=== PATIENT | female | born 1980 | race Caucasian/White ===

== ENCOUNTER 2017-04-16 14:30 | Emergency (ER) | payer SELFPAY ==
[2017-04-16 15:00] VITALS: BMI 24.2
--- NOTE | 2017-04-16 16:10 | PDOC ---
History of Present Illness - General Chief Complaint: Vaginal Bleeding Stated Complaint: Vaginal Bleeding/POSSIBLE Time Seen by Provider: 04/16/17 15:54 History Source: Patient - History of Present Illness Timing/Duration: reports: other Abdominal Pain Onset Location: reports: suprapubic Pain Radiation: reports: no radiation Past History - Past Medical History Allergies/Adverse Reactions: Allergies Allergy/AdvReac Type Severity Reaction Status Date / Time No Known Allergies Allergy Verified 04/16/17 14:57 Home Medications: Ambulatory Orders Nitrofurantoin Monohyd/M-Cryst [Macrobid -] 100 mg PO BID #14 capsule 04/16/17 - Psycho/Social/Smoking Cessation Hx Suicidal Ideation: No Smoking History: Never smoked Review of Systems - Review of Systems Constitutional: No: Chills, Fever ABD/GI: Yes: Abdominal cramping. No: Nausea, Vomiting : No: Dysuria *Physical Exam - Vital Signs Last Vital Signs Temp Pulse Resp BP Pulse Ox 98.3 F 100 H 18 130/66 100 04/16/17 14:57 04/16/17 14:57 04/16/17 14:57 04/16/17 14:57 04/16/17 14:57 - Physical Exam General Appearance: Yes: Appropriately Dressed. No: Apparent Distress HEENT: positive: Normal Voice Neck: positive: Supple Respiratory/Chest: negative: Respiratory Distress Female Pelvic Exam: positive: normal external exam, normal adnexa, other (trace vag bleed from os, os closed). negative: CMT, discharge, lesions Gastrointestinal/Abdominal: positive: Tender (minimal ttp to mid suprapubic), Soft. negative: Distended, Guarding, Rebound Musculoskeletal: negative: CVA Tenderness Integumentary: positive: Dry, Warm Neurologic: positive: Fully Oriented, Alert, Normal Mood/Affect ED Treatment Course - LABORATORY CBC & Chemistry Diagram: 04/16/17 16:15 04/16/17 16:15 Medical Decision Making - Medical Decision Making 04/16/17 16:05 36-year-old female, G0, presenting with vaginal bleeding. Patient states her last normal period was February 22, 2017, did not have a period last month and tested positive for at home. For unclear reasons, has not follow-up with OB. Here today because of vaginal spotting that started 5 days ago and states she but again today and had some lower abdominal cramping. No dysuria, nausea, vomiting, dizziness or weakness. See exam 1st trimester bleed Ectopic vs spon AB vs vag bleed in nl preg Stable w/ minimal mid suprapubic ttp w/ trace blood in vault and closed os -T&S -US -Beta -US 04/16/17 18:43 04/16/17 18:57 04/16/17 18:58 Beta >130K w/ IUP @ 7 weeks on US w/ FHR. Ua w/ 2+ LE, will tx. Ucx pending. Pt signed out to [facility] pending T&S. Pt will need OB f/u for re-evaluation this week 04/16/17 18:59 04/16/17 19:01 04/16/17 19:06 Pt states she is B+ blood type and does not wish to wait for T&S. Pt discharged to f/u with her Ob this week *DC/Admit/Observation/Transfer Diagnosis at time of Disposition: Threatened - Discharge Dispostion Disposition: HOME Condition at time of disposition: Good - Prescriptions Prescriptions: Nitrofurantoin Monohyd/M-Cryst [Macrobid -] 100 mg PO BID #14 capsule - Patient Instructions Printed Discharge Instructions: Threatened Additional Instructions: Mann HCG beta fue superior a 130.000. Mann ultrasonido muestra un embarazo intrauterino a aproximadamente 7 semanas 5 pelaez con actividad cardaca . Tendr que hacer un seguimiento con mann gineclogo esta semana para repetir la evaluacin. Usted delmer glbulos blancos en la orina, lo que podra significar hill infecci n y se inici con antibiticos para prevenir complicaciones con mann embarazo Print Language: ROMANIAN
[2017-04-16 16:47] LABS: BASOPHIL 0.3 % (0-2.0); EOSINOPHIL 0.3 % (0-4.5); MCH 25.6 pg (25.7-33.7); MCHC 32.7 g/dl (32.0-36.0); MEAN CELL VOLUME 78.2 fl (80-96); MEAN PLT VOLUME 9.2 fl (7.5-11.1); NEUTROPHILS 76.8 % (42.8-82.8); PLATELET COUNT 250 K/MM3 (134-434); RDW 17.8 % (11.6-15.6); WHITE BLOOD COUNT 11.6 K/mm3 (4.0-10.0)
[2017-04-16 17:19] LABS: ALBUMIN 3.8 g/dl (3.4-5.0); ANION GAP 10 (8-16); BILIRUBIN,TOTAL 0.4 mg/dL (0.2-1.0); CO2 26 mmol/L (21-32); CREATININE 0.6 mg/dL (0.55-1.02); GLUCOSE,RANDOM 131 mg/dL (74-106); SGOT/AST 14 U/L (15-37); SGPT/ALT 33 U/L (12-78); TOT PROT 7.2 g/dl (6.4-8.2)
[2017-04-16 17:34] LABS: ALK PHOS 46 U/L (45-117)
[2017-04-16 17:56] LABS: URINE APPEARANCE CLOUDY; URINE BILIRUBIN NEGATIVE (NEGATIVE); URINE BLOOD 1+ (NEGATIVE); URINE COLOR YELLOW; URINE GLUCOSE (UA) NEGATIVE (NEGATIVE); URINE KETONE NEGATIVE (NEGATIVE); URINE NITRITE NEGATIVE (NEGATIVE); URINE PROTEIN NEGATIVE (NEGATIVE); URINE UROBILINOGEN NEGATIVE mg/dL (0.2-1.0)
[2017-04-16 18:34] LABS: URINE LEUK ESTERASE 2+ (NEGATIVE)
--- NOTE | 2017-04-16 18:59 | PDOC ---
*Physical Exam - Vital Signs Last Vital Signs Temp Pulse Resp BP Pulse Ox 98.3 F 100 H 18 130/66 100 04/16/17 14:57 04/16/17 14:57 04/16/17 14:57 04/16/17 14:57 04/16/17 14:57 ED Treatment Course - LABORATORY CBC & Chemistry Diagram: 04/16/17 16:15 04/16/17 16:15 - ADDITIONAL ORDERS Additional order review: Laboratory Results 04/16/17 04/16/17 17:45 16:15 Sodium 138 Potassium 3.5 Chloride 102 Carbon Dioxide 26 Anion Gap 10 BUN 8 Creatinine 0.6 Creat Clearance w eGFR > 60 Random Glucose 131 H Calcium 9.0 Total Bilirubin 0.4 AST 14 L ALT 33 Alkaline Phosphatase 46 Total Protein 7.2 Albumin 3.8 Beta HCG, Quant 563447.3 Urine Color Yellow Urine Appearance Cloudy Urine pH 7.0 Urine Protein Negative Urine Glucose (UA) Negative Urine Ketones Negative Urine Blood 1+ H Urine Nitrite Negative Urine Bilirubin Negative Urine Urobilinogen Negative Ur Leukocyte Esterase 2+ H Urine HCG, Qual Positive 04/16/17 16:15 RBC 4.41 MCV 78.2 L MCHC 32.7 RDW 17.8 H MPV 9.2 Neutrophils % 76.8 Lymphocytes % 17.4 Monocytes % 5.2 Eosinophils % 0.3 Basophils % 0.3 Medical Decision Making - Medical Decision Making 04/16/17 18:58 Pt seen by Midlevel Provider under my direct supervision Ancillary studies reviewed I agree with plan as outlined by Midlevel Provider 04/16/17 18:59 Laboratory Tests 04/16/17 04/16/17 16:15 17:45 Beta HCG, Quant 730298.3 Urine Blood 1+ H Urine Nitrite Negative Ur Leukocyte Esterase 2+ H Pending transvaginal US *DC/Admit/Observation/Transfer Diagnosis at time of Disposition: Threatened - Discharge Dispostion Disposition: HOME Condition at time of disposition: Good - Prescriptions Prescriptions: Nitrofurantoin Monohyd/M-Cryst [Macrobid -] 100 mg PO BID #14 capsule - Referrals - Patient Instructions Printed Discharge Instructions: Threatened Additional Instructions: Mann HCG beta fue superior a 130.000. Mann ultrasonido muestra un embarazo intrauterino a aproximadamente 7 semanas 5 pelaez con actividad cardaca . Tendr que hacer un seguimiento con mann gineclogo esta semana para repetir la evaluacin. Usted delmer glbulos blancos en la orina, lo que podra significar hill infecci n y se inici con antibiticos para prevenir complicaciones con mann embarazo Print Language: JAPANESE - Post Discharge Activity
[2017-04-16 19:11] VITALS: BP 114/86; PULSE 88; TEMP 98.2
[2017-04-16 22:57] LABS: URINE MUCUS RARE; URINE RBC 1 /hpf (0-3); URINE WBC 1 /hpf (3-5)
== END 2017-04-16 19:13 | disposition home or self-care (01) ==
LOC: JER 14:30
DX: O20.0 Threatened abortion (principal); Z3A.01 Less than 8 weeks gestation of pregnancy
CPT/HCPCS: 36415; 76801-TC; 80053; 81003; 81015; 84702; 84703; 85025; 86850; 86900; 86901; 99281-25